=== PATIENT | female | born 1960 | race Caucasian/White ===

== ENCOUNTER → 2020-04-17 13:23 | Outpatient (BNV) | payer MEDICARE, MEDICAID, SELFPAY | PROVIDERS: PCP Internal Medicine; Visit Provider Internal Medicine Medical Oncology | DX: C50.911 Malignant neoplasm of unspecified site of right female breast (principal) | CPT/HCPCS: 99213; 99214; 99443 ==

== ENCOUNTER 2020-12-27 14:20 | Outpatient (REF) | payer MEDICARE, MEDICAID, SELFPAY ==
--- NOTE | ~2020-12-27 | MM_ITS ---
EXAMINATION: MM DIAGNOSTIC DIGITAL BREAST TOMOSYNTHESIS, BILATERAL CLINICAL INFORMATION: Due for yearly. 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 COMPARISON: Mammography: 12/19/2019, 12/15/2018, 12/25/2017, 12/15/2017 TECHNIQUE: Digital breast tomosynthesis is performed in both the craniocaudal and mediolateral oblique views along with computer-aided detection (CAD). Synthesized 2D images are generated from the tomosynthesis. Additional magnification right CC and magnification right ML views are obtained. FINDINGS: The breasts are heterogeneously dense, which may obscure small masses (ACR BI-RADS breast composition Category c). Parenchymal pattern is similar to prior exam. Breast tissue composition borders on average fibroglandular. There are post therapy changes on the right with stable scarring. Smooth skin thickening right breast is decreased from prior exam. Neither breast shows interval mass or architectural abnormality or abnormal calcifications. No significant changes. Results are provided to the patient at time of visit by the technologist. MM/MM tomosynthesis diagnostic BI IMPRESSION: No mammographic evidence of malignancy. Post therapy changes right breast. ASSESSMENT: BI-RADS 2: Benign RECOMMENDATION: Routine annual mammography screening. This patient's information was entered into a reminder system with a target due date for their next mammogram.
== END 2020-12-27 14:21 | disposition home or self-care (01) ==
LOC: HO.MAMMO 14:20
PROVIDERS: Visit Provider Internal Medicine
DX: Z85.3 Personal history of malignant neoplasm of breast (principal)
CPT/HCPCS: 77062; 77066

== ENCOUNTER 2021-07-08 09:15 | Outpatient (REF) | payer MEDICARE, MEDICAID, SELFPAY ==
[2021-07-08 11:07] LABS: MANUAL DIFF FLAG NO
[2021-07-08 11:29] LABS: Basophils Absolute Auto 0.1 X10*3/uL (0.0-0.2); Basophils Percent Auto 0.6 % (0-2); Eosinophils Absolute Auto 0.1 X10*3/uL (0.0-0.4); Eosinophils Percent Auto 1.2 % (0-4); Hematocrit 45.3 % (37.0-47.0); Hemoglobin 15.9 g/dl (12.0-16.0); Imm Gran Abs Auto 0.03 X10*3/uL (0.00-0.03); Imm Gran Pct Auto 0.4 % (0.0-0.4); Lymphocytes Absolute Auto 1.7 X10*3/uL (1.2-4.9); Lymphocytes Percent Auto 21.3 % (20-40); Mean Corpuscular HGB Conc 35.1 g/dl (31.0-35.0); Mean Platelet Volume 10.1 fL (9.4-12.3); Monocytes Absolute Auto 0.5 X10*3/uL (0.1-1.2); Monocytes Percent Auto 6.6 % (2-11); Neutrophils Absolute Auto 5.6 x10*3/uL (2.0-8.3); Neutrophils Percent Auto 69.9 % (45-73); Platelet Count 189 X10*3/uL (160-400); Red Blood Count 4.82 X10*6/uL (4.20-5.50); Red Cell Distribution Width 12.1 % (11.0-16.0)
[2021-07-08 11:42] LABS: Alanine Aminotransferase 36 U/L (0-31); Albumin Level 4.7 g/dL (3.5-5.0); Alkaline Phosphatase 78 U/L (39-117); Anion Gap 14 (12-20); Aspartate Amino Transferase 32 U/L (5-31); Bilirubin Total 0.8 mg/dL (0.0-1.0); Blood Urea Nitrogen 10 mg/dL (9-16); Carbon Dioxide 29 mmol/L (22-29); Chloride 101 mmol/L (96-108); Estimated Glomerular Filt Rate > 60; Glucose Random 141 mg/dL (60-115); Sodium 140 mmol/L (135-145); Total Protein 7.8 g/dL (6.5-8.0)
[2021-07-10 07:47] LABS: CA 27.29 19 U/mL (<38)
== END 2021-07-08 09:16 | disposition home or self-care (01) ==
LOC: HO.MANLDS 09:15
PROVIDERS: PCP Internal Medicine; Visit Provider Internal Medicine Medical Oncology
DX: C50.919 Malignant neoplasm of unspecified site of unspecified female breast (principal)
CPT/HCPCS: 36415; 80053; 85025; 86300

== ENCOUNTER 2022-01-15 10:15 | Outpatient (REF) | payer MEDICARE, MEDICAID, SELFPAY ==
[2022-01-15 13:51] LABS: MANUAL DIFF FLAG NO
[2022-01-15 13:57] LABS: Basophils Absolute Auto 0.1 X10*3/uL (0.0-0.2); Basophils Percent Auto 0.6 % (0-2); Eosinophils Percent Auto 0.3 % (0-4); Hematocrit 44.6 % (37.0-47.0); Hemoglobin 15.4 g/dl (12.0-16.0); Imm Gran Abs Auto 0.03 X10*3/uL (0.00-0.03); Imm Gran Pct Auto 0.3 % (0.0-0.4); Lymphocytes Percent Auto 23.6 % (20-40); Mean Corpuscular HGB Conc 34.5 g/dl (31.0-35.0); Mean Corpuscular Hemoglobin 32.3 pg (27.0-33.0); Mean Corpuscular Volume 93.5 fL (80.0-98.0); Monocytes Absolute Auto 0.6 X10*3/uL (0.1-1.2); Monocytes Percent Auto 6.8 % (2-11); Neutrophils Absolute Auto 5.9 x10*3/uL (2.0-8.3); Neutrophils Percent Auto 68.4 % (45-73); Platelet Count 186 X10*3/uL (160-400); Red Blood Count 4.77 X10*6/uL (4.20-5.50); Red Cell Distribution Width 13.6 % (11.0-16.0); White Blood Count 8.6 X10*3/uL (4.8-10.8)
[2022-01-15 14:20] LABS: Alanine Aminotransferase 22 U/L (0-31); Alkaline Phosphatase 90 U/L (39-117); Anion Gap 16 (12-20); Aspartate Amino Transferase 22 U/L (5-31); Bilirubin Total 0.6 mg/dL (0.0-1.0); Blood Urea Nitrogen 20 mg/dL (9-16); Carbon Dioxide 30 mmol/L (22-29); Chloride 100 mmol/L (96-108); Estimated Glomerular Filt Rate 52; Glucose Random 129 mg/dL (60-115); Potassium 3.8 mmol/L (3.3-5.1); Sodium 142 mmol/L (135-145); Total Protein 8.2 g/dL (6.5-8.0)
[2022-01-15 14:30] LABS: Vitamin D 25-OH Total 33.7 ng/mL (>30)
[2022-01-18 09:47] LABS: CA 27.29 24 U/mL (<38)
== END 2022-01-15 10:16 | disposition home or self-care (01) ==
LOC: HO.MANLDS 10:15
PROVIDERS: Visit Provider Internal Medicine Medical Oncology
DX: C50.919 Malignant neoplasm of unspecified site of unspecified female breast (principal)
CPT/HCPCS: 36415; 80053; 82306; 85025; 86300

== ENCOUNTER 2022-01-27 14:37 | Outpatient (REF) | payer MEDICARE, MEDICAID, SELFPAY ==
--- NOTE | ~2022-01-27 | MM_ITS ---
EXAMINATION: MM SCREENING DIGITAL BREAST TOMOSYNTHESIS, BILATERAL CLINICAL INFORMATION: Right breast IDC status post lumpectomy, 2018. Due for yearly. COMPARISON: Mammography: 12/27/2020, 12/19/2019, 12/15/2018, 12/25/2017, 12/15/2017. TECHNIQUE: Digital breast tomosynthesis is performed in both the craniocaudal and mediolateral oblique views along with computer-aided detection (CAD). Synthesized 2D images are generated from the tomosynthesis. FINDINGS: There are scattered areas of fibroglandular density (ACR BI-RADS breast composition Category b). Right breast post therapy changes are similar to prior exam with mild reduced breast size and stable scarring. Neither breast shows interval mass or architectural abnormality or abnormal calcifications. The axilla are unremarkable. There are no significant changes. MM/MM tomosynthesis screening BI IMPRESSION: -No mammographic evidence of malignancy. -Post therapy changes right breast. ASSESSMENT: BI-RADS 2: Benign RECOMMENDATION: Routine annual mammography screening. This patient's information was entered into a reminder system with a target due date for their next mammogram.
== END 2022-01-27 14:38 | disposition home or self-care (01) ==
LOC: HO.MAMMO 14:37
PROVIDERS: Visit Provider Internal Medicine Medical Oncology
DX: Z12.31 Encounter for screening mammogram for malignant neoplasm of breast (principal)
CPT/HCPCS: 77063; 77067

== ENCOUNTER → 2022-07-25 11:23 | Outpatient (BNVA) | payer MEDICARE, MEDICAID, SELFPAY | PROVIDERS: PCP Internal Medicine; Visit Provider Surgery | DX: C50.511 Malignant neoplasm of lower-outer quadrant of right female breast (principal); Z17.1 Estrogen receptor negative status [ER-]; Z92.21 Personal history of antineoplastic chemotherapy; Z79.620 Long term (current) use of immunosuppressive biologic; Z92.3 Personal history of irradiation | CPT/HCPCS: 99212 ==

== ENCOUNTER 2023-02-02 14:21 | Outpatient (REF) | payer MEDICARE, MEDICAID, SELFPAY ==
--- NOTE | ~2023-02-02 | MM_ITS ---
EXAMINATION: MM SCREENING DIGITAL BREAST TOMOSYNTHESIS, BILATERAL CLINICAL INFORMATION: Screening. Asymptomatic. The patient is status post right breast cancer surgery in 2018. COMPARISON: Mammography: This study is compared with prior exams dating back to 2018. TECHNIQUE: Digital breast tomosynthesis is performed in both the craniocaudal and mediolateral oblique views along with computer-aided detection (CAD). Synthesized 2D images are generated from the tomosynthesis. FINDINGS: The breasts are heterogeneously dense, which may obscure small masses (ACR BI-RADS breast composition Category c). There are no significant masses, abnormal calcifications, or other abnormalities. There are architectural changes the upper outer quadrant of the right breast from prior surgery for breast cancer. MM/MM tomosynthesis screening BI IMPRESSION: No mammographic evidence of malignancy. ASSESSMENT: BI-RADS BI-RADS 2 - Benign Findings RECOMMENDATION: Routine annual mammography screening. 1 year F/U This examination should not preclude the clinical evaluation of a suspicious palpable abnormality. This patient's information was entered into a reminder system with a target due date for their next mammogram.
== END 2023-02-02 14:22 | disposition home or self-care (01) ==
LOC: HO.MAMMO 14:21
PROVIDERS: PCP Internal Medicine; Visit Provider Internal Medicine
DX: Z12.31 Encounter for screening mammogram for malignant neoplasm of breast (principal)
CPT/HCPCS: 77063; 77067

== ENCOUNTER → 2023-02-02 15:00 | Outpatient (BNV) | payer MEDICARE, MEDICAID, SELFPAY | PROVIDERS: PCP Internal Medicine; Visit Provider Radiology Diagnostic Radiology | DX: Z12.31 Encounter for screening mammogram for malignant neoplasm of breast (principal) | CPT/HCPCS: 77063; 77067 ==

== ENCOUNTER 2024-02-04 14:00 | Outpatient (REF) | payer MEDICARE, MEDICAID, SELFPAY ==
--- NOTE | ~2024-02-04 | MM_ITS ---
EXAMINATION: MM SCREENING DIGITAL BREAST TOMOSYNTHESIS, BILATERAL CLINICAL INFORMATION: Screening. Asymptomatic. COMPARISON: Mammography: Comparison is made with available priors TECHNIQUE: Digital breast mammography with tomosynthesis is performed in both the craniocaudal and mediolateral oblique views along with computer-aided detection (CAD). FINDINGS: The breasts are heterogeneously dense, which may obscure small masses (ACR BI-RADS breast composition Category c). Right post surgical changes are stable. There are no significant masses, abnormal calcifications, or other abnormalities. MM/MM tomosynthesis screening BI IMPRESSION: No mammographic evidence of malignancy. ASSESSMENT: BI-RADS BI-RADS 2 - Benign Findings RECOMMENDATION: Routine annual mammography screening. 1 year F/U This examination should not preclude the clinical evaluation of a suspicious palpable abnormality. This patient's information was entered into a reminder system with a target due date for their next mammogram. Electronically signed by: Lauren Reed DO 02/12/2024 04:08 PM TAHIR
== END 2024-02-04 14:01 | disposition home or self-care (01) ==
LOC: HO.MAMMO 14:00
PROVIDERS: PCP Internal Medicine; Visit Provider Internal Medicine
DX: Z12.31 Encounter for screening mammogram for malignant neoplasm of breast (principal)
CPT/HCPCS: 77063; 77067

== ENCOUNTER → 2024-02-04 14:30 | Outpatient (BNV) | payer MEDICARE, MEDICAID, SELFPAY | PROVIDERS: PCP Internal Medicine; Visit Provider Internal Medicine | DX: Z12.31 Encounter for screening mammogram for malignant neoplasm of breast (principal) | CPT/HCPCS: 77063; 77067 ==

== ENCOUNTER 2025-02-09 13:37 | Outpatient (REF) | payer MEDICARE, MEDICAID, SELFPAY ==
--- OUTSIDE RECORDS SUMMARY | 2025-02-07 23:59 | XMS_ITS | Continuity of Care Document ---
Author Organization [facility] Address [address] [place] [address]- Care Team Providers Care Mailroom Associate Name Role Phone Kwan Arthur MD Primary Care Physician [place] [facility] [place]/07/25 [facility] [address] [place], [place] [address] Encounter Type: Triage Allergies, Adverse Reactions, Alerts Substance Criticality Severity Reaction Reaction Severity Status codeine Hives Active Immunizations Given and Recorded Vaccine Date Status Refusal Reason influenza virus vaccine, inactivated 12/30/20 Camacho rded influenza virus vaccine, inactivated 11/29/19 Camacho rded influenza virus vaccine, inactivated 11/20/17 Camacho rded influenza virus vaccine, inactivated 11/14/14 Camacho rded SARS-CoV-2 (COVID-19) mRNA BNT-162b2 vac 12/23/20 Recorded SARS-CoV-2 (COVID-19) mRNA BNT-162b2 vac 06/22/20 Recorded SARS-CoV-2 (COVID-19) mRNA BNT-162b2 vac 06/01/20 Recorded zoster vaccine, inactivated 06/06/19 Recorded Zoster Vaccine Live 11/20/17 Recorded tetanus/diphtheria/pertussis, acel(Tdap) 11/25/15 Given Medications amLODIPine 5 mg oral tablet 1 tablet, By Mouth, Daily, # 90 tablet, 1 Refills, Maintenance, 01/12/25 12:11:00 PM EDT, [facility] #[id number], 165, cm, 12/28/24 13:42:00 EDT, Height, 98.6, kg, 12/28/24 13:42:00 EDT, Dry Weight Start Date: 01/12/25 Status: Ordered Medication Dispense Status: Completed Quantity: 90.0 Unit: tablet Total Allowed Fills: 1 Fills Dispensed: 0 atenolol 25 mg oral tablet See Instructions, TAKE 1 TABLET BY MOUTH DAILY, # 90 tablet, Refills 1, Maintenance, 10/19/24 5:19:00 PM EDT, Instructions Replace Required Details, Route to Pharmacy Electronically, [email or web address] #[id number], 165, cm, 05/30/24 13:36:00 EST, Height Start Date: 10/19/24 Status: Ordered Medication Dispense Status: Completed Quantity: 90.0 Unit: tablet Total Allowed Fills: 1 Fills Dispensed: 0 hydrochlorothiazide-olmesartan 25 mg-40 mg oral tablet 1 tablet, By Mouth, Daily, # 90 tablet, 1 Refills, Maintenance, 01/12/25 12:11:00 PM EDT, [facility] #[id number], 90, TAKE 1 TABLET BY MOUTH DAILY, 165, cm, 12/28/24 13:42:00 EDT, Height, 98.6, kg, 12/28/24 13:42:00 EDT, Dry Weight Start Date: 01/12/25 Status: Ordered Medication Dispense Status: Completed Quantity: 90.0 Unit: tablet Total Allowed Fills: 1 Fills Dispensed: 0 Vitamin D3 1000 intl units oral capsule See Instructions, TAKE 1 CAPSULE BY MOUTH DAILY, # 100 capsule, 3 Refills, Maintenance, 09/30/24 10:37:00 AM EDT, [email or web address] #[id number], 165, cm, 05/30/24 13:36:00 EST, Height Start Date: 09/30/24 Status: Ordered Medication Dispense Status: Completed Quantity: 100.0 Unit: capsule Total Allowed Fills: 1 Fills Dispensed: 0 Problem List Condition Confirmation Course Effective Dates Status H ealth Status Informant Anxiety Confirmed Active History of breast cancer; surgery, radiation, chemo Confirmed Active Hypercalcemia Confirmed Active Hypertension; 01/21 ASCVD 5% Confirmed Active Leukocytosis Confirmed Active Severe obesity (BMI 35.0-39.9) with comorbidity Confirmed Active Social History Social History Type Response Sexual Gender identity: Fem brad. Tobacco Other: Quit approx 2 003. Sex Sex Representation Female (finding) Patient Care team information Care Team Personnel Name: Kwan Arthur MD Position: [facility] Physician - Primary Care Member Role: PCP Address: [address] [place] [address] Telecom: Care Team Related Persons Name: BRITTANIE LAGOS Insurance Providers Guarantor name: SHILOH Health Plan Information #: 1 Payer: MEDICARE B Payer Identifier: Member Number: [id number] Group Number: Subscriber Identifier: Relationship to Subscriber: self Coverage Type: NA Coverage Verification Date: NA Telecom: NA Address: NA Health Plan Information #: 2 Payer: [employer] Payer Identifier: Member Number: [id number] Group Number: Subscriber Identifier: Relationship to Subscriber: self Coverage Type: MEDICAID Coverage Verification Date: NA Telecom: Address: NA
--- NOTE | ~2025-02-09 | MM_ITS ---
EXAMINATION: DXA BONE DENSITY AXIAL HISTORY: Osteopenia TECHNIQUE: Diplopia Dual energy absorptiometry (DEXA) of the lumbar spine, total left hip, and femoral neck was performed. COMPARISON: Comparison is made with the prior examination dated November 2019. FINDINGS: The bone mineral density of the lumbar spine is 1.382 g/cm2, corresponding to a T-score of 1.7, and a Z-score of 2.3. This is indicative of normal bone mineral density. This represents a BMD change of 8% compared to the prior exam. The bone mineral density of the left total hip is 1.134 g/cm2, corresponding to a T-score of 1.0, and a Z-score of 1.5. This is indicative of normal bone mineral density. This represents a BMD change of 0.7% compared to the prior exam. The bone mineral density of the left femoral neck is 1.065 g/cm2, corresponding to a T-score of 0.2, and a Z-score of 1.0. This is indicative of normal bone mineral density. This represents a BMD change of 1.8% compared to the prior exam. MM/XR DEXA axial skeleton IMPRESSION: Based on bone mineral density, and according to World Health Organization (WHO) criteria, the diagnosis is consistent with normal bone mineral density according to lowest T score of 0.2 in the left femoral neck. Treatment Recommendations: NOF guidelines recommend consideration for treatment in postmenopausal women and men age 50 and older presenting with the following: -A hip or vertebral (clinical or morphometric) fracture. -T-score less than or equal to -2.5 at the femoral neck or spine after appropriate evaluation to exclude secondary causes. -Low bone mass at the hip or spine and a 10-year fracture probability by FRAX of greater than or equal to 3% for hip fracture or greater than or equal to 20% for major osteoporotic fracture based on the [place] adapted WHO algorithm. Other Recommendations: All treatment decisions require clinical judgment and consideration of individual patient factors, including patient preferences, comorbidities, previous drug use, risk factors not captured in the FRAX model (e.g. frailty, falls, vitamin D deficiency, increased bone turnover, interval significant decline in bone density) and possible under or overestimation of fracture risk by FRAX. Additional medical evaluation for secondary cause of low bone mineral density may be appropriate. FUTURE SCAN RECOMMENDATION: People with diagnosed cases of osteoporosis or at high risk for fracture should have regular bone mineral density tests. For patients eligible for Medicare, routine testing is allowed once every 2 years. The testing frequency can be increased to one year for patients who have rapidly progressing disease, those who are receiving or discontinuing medical therapy to restore bone mass, or have additional risk factors. Statistically, 68% of repeat scans fall within 1 SD (+/- 0.010 g/cm2 for AP spine L1-L4) and 1 SD (+/- 0.012 g/cm2 for femur total) FRAX is a trademark of the [employer] [place] [facility] Metabolic Bone Disease, a World Health Organization (WHO) Collaborating Center. Electronically signed by: Thalia Cannon MD 02/09/2025 02:53 PM [facility]
--- OUTSIDE RECORDS SUMMARY | 2025-02-09 16:58 | XMS_ITS | Patient Health Record ---
Author Organization [facility] Address [address] [place] [address] Care Team Providers Care Sweater Operator Name Role Phone Wilma (RETIRED) Vishal HUSAIN Primary Care Provide r Gerhard Towsnend Jr Unavailable [phone] Reason For Referral No Information Medications Medication SIG (Take, Route, Frequency, Duration) Notes Start Date End Date Status Colyte with Flavor Packs 240 GM As directed Orally Over the specified time.; Duration: 1 day(s) 09/03/2012 03/30/2024 Active Atenolol 25mg 03/30/2024 03/30/2024 Acti ve hydroCHLOROthiazide 12.5mg Active Diovan HCT Active Problems Problem Type SNOMED Code ICD Code Onset Dates Problem Status W/U Status Risk Notes Problem Long-term current use of drug therapy (351514724) Encounter for long-term (current) use of other medications (V58.69) Active confirmed Problem Colon cancer screening (141202828) Colon cancer screening (V76.51) Active confirmed Plan Of Treatment Future Test Test Name Order Date COLONOSCOPY 09/03/2012 Insurance Providers Payer Name Payer Address Payer Phone Subscriber Number Group Number Insured Name Patient Relationship to Insured Coverage Start Date Coverage End Date [facility] [address] [place]HER Ramirez, [place] [phone] [id number] YOLIS SARAH Self - patient is the insured MEDICARE OF [place] [address] [place] [id number] SARAH LAGOS Self - patient is the insured MEDICAID OF [facility] [address] [place] [address] [phone] [id number] SARAH LAGOS Self - patient is the insured Medical (General) History Medical History History ICD Code hypertension Denies [place],DM,CVA,Lung disease,renal dise ase Surgical History Surgery Date(Month/Year) appendectomy
--- OUTSIDE RECORDS SUMMARY | 2025-02-09 16:58 | XMS_ITS | Data Portability ---
Author Organization [facility], Telehealth Patient Home Address [address] [place] [address] Assessment Encounter Date Assessment Date Assessment LastModified by Organization Details LastModified Time 01/14/2021 01/14/2021 Patient agreed and verbally consents to this audio and video Telehealth appt via a secure platform [email or web address] Not available 01/14/2021 13:56:57 04/23/2021 04/23/2021 Patient agreed and verbally consents to this audio and video Telehealth appt via a secure platform [email or web address] Not available 04/23/2021 14:27:59 08/20/2021 08/20/2021 Patient agreed and verbally consents to this audio and video Telehealth appt via a secure platform [email or web address] Not available 08/20/2021 15:00:33 Plan of Treatment Reminders Order Date Submit Date Provider Last Modified By Organization Details Last Modified Time Details Appointments None recorded . Lab CMP, serum or plasma 021 09/27/[address] [facility], [address] [place] [address], [id number], 1 08:12:37 CBC w/ auto diff 021 09/27/[address] [facility], [address] [place] [address], [id number], 1 08:12:37 lipid panel, blood 021 09/27/[address] [facility], [address] [place] [address], [id number], 08:12:37 Referral None recorded . Procedures None recorded . Surgeries None recorded . Imaging None recorded . Medication Orders None recorded . Patient TargetsNo targets recorded. Patient InstructionsNo instructions recorded. Reason for Referral None Reported. Results Created Date Observation Date Name Description Value Unit Range Abnormal Flag Note LastModifiedBy Organization Detail LastModifiedTime 12/28/19 21 12/27/2020 MAMMO , scree radha, digit al, bilat eral No observ ation record ed. [email or web address] [facility] [address] [place], [address], 12/28/2020 08:13:43 Result Notes None recorded. Problems Name Problem SNOMED Code Status Onset Date Resolution Date Notes Provider Name and Address Organization Details Recorded Time Essential hypertensi on 54152723 Active 2017 Analia Rose NP, S [address] [place] [address], [phone], [facility] 8 11:48:41 Generalize d anxiety disorder 00081137 Active 2017 Analia Rose NP, S [address] [place] [address], [phone], [facility] 8 11:48:56 Malignant neoplasm of breast 417550338 Active 2017 Analia Rose NP, S [address] [place] [address], [phone], [facility] 8 08:35:58 Problem Notes None recorded. Medical Equipment None Reported. Allergies Allergen ID Allergen Name Allergen Category Reaction Reaction Severity Criticality Documentation Date Start Date Code Code System Note Provider Name and Address Organization Details Recorded Time 483 codeine medicatio n Not available Not available Not available 06/09/2017 2670 RxNorm Analia Rsoe NP, S [address] [place] [address], [phone], [facility] 8 11:48:20 Medications Name Sig Start Date Stop Date Status Note LastModified by Organization Details LastModified Time ondansetron HCl 8 mg tablet 11/09 completed Not Available Not Available Not Available atenolol 25 mg tablet TAKE 1 TABLET BY MOUTH EVERY DAY 2022 active Not Available Not Available Not Avai lable amlodipine 5 mg tablet TAKE 1 TABLET BY MOUTH EVERY DAY active Not Available Not Available No t Available IBU 600 mg tablet 11/09 completed Not Available Not Available Not Available doxycycline monohydrate 100 mg capsule 06/23 completed Not Available Not Available Not Available dexamethason e 4 mg tablet 11/09 completed Not Available Not Available Not Available valsartan 320 mg tablet Take 1 tablet every day by oral route. 03/19 completed Not Available Not Available Not Available hydrochlorot hiazide 12.5 mg capsule TAKE 1 CAPSULE BY MOUTH TWICE DAILY active Not Available Not Available No t Available oxycodone 5 mg tablet 03/19 completed Not Available Not Available Not Available valsartan 160 mg tablet 03/19 completed Not Available Not Available Not Available olmesartan 20 mg tablet take 1 tablet by mouth once daily 12/27 completed Not Available Not Available Not Available olmesartan 40 mg tablet TAKE 1 TABLET BY MOUTH EVERY DAY active Not Available Not Available No t Available amlodipine 5 mg 1 daily 06/23 completed Not Available Not Available Not Available potassium chloride ER 20 mEq tablet,exten ded release 06/05 completed Not Available Not Available Not Available Shingrix (PF) 50 mcg/0.5 mL intramuscula r suspension, kit 09/26 completed Not Available Not Available Not Available Vitals Date Recorded Body height Body mass index (BMI) Body weight Oxygen saturation Oxygen saturation in Arterial blood by Pulse oximetry Heart rate Systolic And Diastolic Provider Name and Address Organization Details Last Updated DateTime 1 163.83 cm 37 kg/m2 09456.7 3 g 96 % 96 % 94 /min 138/82 mm[Hg] [facility] 1 13:34:21 Social History Question Answer Notes LastModified by Organizat ion Details LastModified Time Tobacco Smoking Status Never Smoker Not Available [facility] 01/31/2020 03:36:23 What Was The Date Of Your Most Recent Tobacco Screening? 09/26/2020 [email or web address] Information not available 04/23/2021 Sex: Unknown Functional Status None recorded. Mental Status None recorded. Family History Nothing Reported. Medical History Condition Response Coronary Artery Disease N Gout N Other N Kidney Stones N Blood Diseases N Blood Transfusion N Breast Cancer N COPD N Depression N Lung Disease N Defects or Inherited Disease N Anxiety Disorder N Muscle, Joint, or Bone Problems N Obesity N Vision or Eye Problems N Arthritis N Polyps N Infertility N Mental Disorder N Cancer N Varicosities N Stroke N Endometriosis N Bladder or Kidney Problems N High Cholesterol N Liver Disease N Headaches N Fibromyalgia N Kidney Disease N Allergies/Hayfever N Heart Problems N Hospitalizations N Thyroid Problems N GI Problems N Eating Disorder N Skin Problems N Anemia N MRSA exposure N Constipation N Mental Illness N Diabetes N Ovarian Cancer N Seizures/Epilepsy N Tuberculosis N Congestive Heart Failure (CHF) N Eczema N Abuse/Domestic Violence N Diverticulitis N Asthma N Reflux/GERD N Hepatitis N Heart Disease N Pulmonary Embolism N Hypertension N Chicken Pox N Autism Spectrum Disorder (ASD) N Osteoporosis N Gynecological HistoryNo gynecological history recorded. Obstetrics History GPAL:G 0 P 0 0 0 0 Immunizations Vaccine Type Date Status Note Provider Nam e and Address Organization Details Recorded Time zoster, unspecified formulation 0 completed Mellisa ibarra [facility] 04/23/2021 08:23:47 zoster, unspecified formulation 0 hayden ibarra [facility] 04/23/2021 08:23:47 Tdap 6 completed Analia Rose NP, S [address] [place] [address], [phone], [facility] 06/09/2017 11:51:44 Influenza, split virus, quadrivalent, preservative 8 completed Mellisa ibarra [facility] 04/23/2021 08:23:47 COVID-19, mRNA, LNP-S, PF, 30 mcg/0.3 mL dose 1 completed Mellisa ibarra [facility] 04/23/2021 08:23:47 Past Encounters Encounter ID Performer Location Encounter Start Date Encounter Closed Date Diagnosis/Indication Diagnosis SNOMED-CT Code Diagnosis ICD10 Code Diagnosis IMO Codes Diagnosis Note [id number] Santos Glasgow DO [facility] [address] [facility] [address] 07/27/2017 10:11:27 07/27/2017 11:18:16 Essential hypertension 73531500 I10 stable, continue medication s Anxiety 43652744 F41.9 much improved [id number] Santos Glasgow [facility] [address] [facility] [address] [address] 11/18/2017 13:23:44 11/18/2017 14:14:46 Essential hypertension 50658397 I10 stable, continue medication s Generalize d anxiety disorder 81931839 F41.1 no meds Screening procedure 2012 5006 Z13.9 [id number] Santos Glasgow [facility] [address] [facility] [address] [address] 02/10/2018 14:05:59 02/12/2018 14:17:00 Adult health examination 490462174 Z00.00 Pt continues to defer PAP Malignant neoplasm of breast 872689805 C50.511 Generalize d anxiety disorder 61691904 F41.1 no meds, relaxation Essential hypertension 63401892 I10 stable, continue medication s [id number] Santos Glasgow [facility] [address] [facility] [address] 03/19/2018 14:27:16 03/19/2018 15:57:41 Cellulitis 160421783 L03.90 with abscess at site of lumpectomy on doxy - need to confirm the dose on this appears to be healing well Malignant neoplasm of breast 417154077 C50.011 [id number] Santos Glasgow [facility] [address] [facility] [address] [address] 06/23/2018 13:59:02 06/23/2018 15:53:06 Malignant neoplasm of breast 268246596 C50.511 Generalize d anxiety disorder 65149335 F41.1 no meds, relaxation Essential hypertension 45424008 I10 stable, continue medication s [id number] Santos Glasgow [facility] [address] [facility] [address] [address] 11/09/2018 14:43:28 11/09/2018 15:45:27 Malignant neoplasm of breast 917533149 C50.[address] alanis oncologist Generalize d anxiety disorder 71590684 F41.1 no meds, relaxation Essential hypertension 67065185 I10 stable, continue medication s [id number] Santos Glasgow [facility] [address] [facility] [place] [address] 06/06/2019 14:15:29 06/06/2019 15:44:51 Malignant neoplasm of breast 941263619 C50.511 just completed the chemo and radiation Generalize d anxiety disorder 74018335 F41.1 no meds, relaxation Essential hypertension 45655708 I10 BP not well controlled Active or passive immunization 616203151 Z23 [id number] Santos Glasgow [facility] [address] [facility] [place] [address] 12/28/2019 08:11:02 12/28/2019 16:49:46 Essential hypertension 58541152 I10 unable to take BP due to patient not being in office patient does not take her BP at home she is taking all her medication s at home Generalize d anxiety disorder 70994112 F41.1 the patient is very anxious about this situation with the virus, refusing to leave her house [id number] Santos Glasgow [facility] [address] [facility] [place] [address] 06/27/2020 08:15:13 06/27/2020 15:55:45 Essential hypertension 61602919 I10 unable to take BP due to patient not being in office patient does not take her BP at home she is taking all her medication s at home Generalize d anxiety disorder 49893578 F41.1 the patient's anxiety has improved since staying home and recent vaccine [id number] Santos Glasgow DO [facility] [address] [facility] [address] [place] [address] 09/26/2020 13:30:02 09/26/2020 14:12:05 Generalized anxiety disorder 46025458 F41.1 stable Hypertensive disorder 38 998837 I10 BP fine todaywill monitorund er 140/90 Malignant neoplasm of breast 902791664 C50.511 stable [id number] [facility] [address] [facility] [address] [address] 01/14/2021 08:20:22 01/14/2021 15:30:14 Essential hypertension 11037947 I10 unable to take BP due to patient not being in office patient does not take her BP at home she is taking all her medication s at home Generalize d anxiety disorder 03902950 F41.1 stable Malignant neoplasm of breast 726384749 C50.511 stable [id number] [facility] [address] [facility] [address] 04/23/2021 08:23:40 04/24/2021 08:43:09 Malignant neoplasm of breast 194527471 C50.511 stable Essential hypertension 75886324 I10 unable to take BP due to patient not being in office patient does not take her BP at home she is taking all her medication s at home Generalize d anxiety disorder 71144820 F41.1 stable [id number] Santos [facility] [address] [facility] [address] 08/20/2021 08:36:23 08/21/2021 08:25:21 Essential hypertension 62641498 I10 unable to take BP due to patient not being in office patient does not take her BP at home she is taking all her medication s at home Generalize d anxiety disorder 25294525 F41.1 stable [id number] Santos [facility] [address] [facility] [address] [address] 02/18/2022 08:55:26 02/18/2022 15:20:05 Essential hypertension 05893319 I10 unable to take BP due to patient not being in office patient does not take her BP at home she is taking all her medication s at home Generalize d anxiety disorder 56887612 F41.1 stable Malignant neoplasm of breast 203371353 C50.511 stable per patientno lumps or concerns Health Concerns Section Related Observation LastModified by Organization Detai ls LastModified Time None Recorded Concern Status LastModified by Organization Details LastModified Time None Recorded Advance Directives Directive None Recorded Payers Insurance Date Sequence Insurance Name Policy Number Policy Virgen Covered Member ID Virgen Member ID Guarantor Name 02/15/2022 2 [place] Sera Taylor [id number] Sera Taylor 06/17/2022 1 [place] [employer] Sera Taylor [id number] Sera Taylor Notes Date Note Type Note Provider Name a nd Address Organization Details Recorded Time 1 text/html ROS as noted in the HPI medication fu BP: today in the office the patient BP is 138/82, well-controlled at home the patient is doing well on the BP medication with no side effects and no adjustment of their medications needed today at the appointment well-controlled on medication denies chest pain, sob, ankle swelling, orthopnea, palpitations anxiety: stable now that her hx of breast cancer: stable, no concerns today JAYLEEN SKAGGS [address] [place], [address], [facility] 09/26/2020 13:47:14 1 text/html ROS as noted in the HPI 4 mo fu tele-med video HTN: stable MERARY: stable malignant tumor of breast: stable the patient reports that she has been doing well, taking her medicationsno concerns today will not get BW due to not leaving the house because of the pandemic JAYLEEN SKAGGS [address] [place], [address], [facility] 01/14/2021 13:57:24 2 text/html ROS as noted in the HPI 3 mo f/u telemed video callpatient consents to phone call malignant tumor of the breast: stable, no changes in skin, no rashes, no discharge from the nipple HTN: stable, the patient reports that she is doing wellthe patient is taking her medications as prescribed with no side effects MERARY: the patient is stable, the patient is doing well without medical intervention at this time no intervetnion is required the patient is doing wellthe patient is still mostly quarantining at home, rarely leaves the house, gets everything mailed or delivered to there house JAYLEEN SKAGGS [address] [place], [address], [facility] 04/23/2021 14:29:07 2 text/html ROS as noted in the HPI 3 mo fu telemed phone callpatient consents to phone HTN: stable per patient, does not take it at home because she doesn't have a cuffthe patient reports that she hasn't noticed any side effects of high BPthe patient denies cough, sob, n/v/d, headache, blurred vision anxiety: stablethe patient reports that she is doing well after her cat passed awayspending a lot of time with her mom JAYLEEN SKAGGS [address] [place], [address], [facility] 08/20/2021 15:00:55 2 text/html ROS as noted in the HPI medication f/u tele-med phone callpatient consents to phone call HTN: patient does not take her BPpatient is also not willing to come into the office due to the current pandemic, it has been over two years since she was in the office MERARY: the patient states her anxiety is stablethe patient is still mourning the loss of her cat, who about 7 to 8 mos agobut other than that she states she is doing fine she reports that she and her got a robo-cat which she likes history of breast cancer: still [facility] against AMA given her h/x of the need for monitoringdenies any new skin changes, dimpling of the skin, nipple inversion, or discharge from the nipple JAYLEEN SKAGGS [address] [place], [address], [facility] 02/18/2022 14:38:06 OBGyn Episode No OBEpisode recorded.
== END 2025-02-09 13:38 | disposition home or self-care (01) ==
LOC: HO.MAMMO 13:37
PROVIDERS: PCP Internal Medicine; Visit Provider Internal Medicine Medical Oncology
DX: Z12.31 Encounter for screening mammogram for malignant neoplasm of breast (principal); Z13.820 Encounter for screening for osteoporosis; Z78.0 Asymptomatic menopausal state
CPT/HCPCS: 77063; 77067; 77080

== ENCOUNTER → 2025-02-09 14:30 | Outpatient (BNV) | payer MEDICARE, MEDICAID, SELFPAY | PROVIDERS: PCP Internal Medicine; Visit Provider Radiology Diagnostic Radiology | DX: E28.39 Other primary ovarian failure (principal) | CPT/HCPCS: 77080 ==